=== PATIENT | male | born 1970 | race Caucasian/White ===

== ENCOUNTER 2016-09-11 19:15 | Emergency (ER) | payer MEDICAID ==
[~2016-09-11] VITALS: Ht 185.4 cm; Wt 88.0 kg
[~2016-09-11 19:15] MED LIST: ALB2.5IS NEB; IPRIH IN; MONT10TA34 OR
[2016-09-11 19:23] VITALS: BP 119/93
[2016-09-11] MEDS ORDERED: SODIUM CHLORIDE 0.9% 1,000 ML IV ONE (22:15)
[2016-09-11] MEDS ORDERED: cefTRIAXone 1GM/50ML D5W 50 ML IV ONE (22:15)
[2016-09-11 22:44] LABS: Basophils # (auto) 0.1 uL; Basophils % (auto) 0.9 % (0.0-2.0); CONDITION Y; Eosinophils # (auto) 0.1 uL; Eosinophils % (auto) 1.2 % (0.0-7.0); Hemoglobin 17.5 g/dL (13.5-17.5); Lymphocytes # (auto) 1.3 uL; Lymphocytes % (auto) 11.2 % (10.0-50.0); Mean Corpuscular Hemoglobin 30.4 pg (28.0-32.0); Mean Corpuscular Hgb Conc. 33.6 g/dL (32.0-36.0); Mean Corpuscular Volume 90.5 fL (80.0-100.0); Mean Platelet Volume 9.3 fL (7.4-10.4); Monocytes % (auto) 8.5 % (0.0-12.0); Neutrophils # (auto) 8.8 uL; Neutrophils % (auto) 78.2 % (37.0-80.0); Platelet Count (auto) 320 10^3/uL (140-450); White Blood Cell 11.2 10^3/uL (4.4-10.8)
[2016-09-11 22:59] LABS: Albumin 3.2 g/dL (3.4-5.0); BUN/Creatinine Ratio 11.7; Bilirubin, Total 0.3 mg/dL (0.2-1.0); Calcium 8.8 mg/dL (8.5-10.1); Potassium 4.3 mmol/L (3.5-5.1); Total Protein 7.6 g/dL (6.4-8.2)
== END 2016-09-11 23:56 | disposition home or self-care (01) ==
LOC: ER 19:16
DX: L02.511 Cutaneous abscess of right hand (principal); I10 Essential (primary) hypertension; J45.909 Unspecified asthma, uncomplicated
CPT/HCPCS: 36415; 73120; 80053; 83605; 85025; 96361; 96365; 99285; J0696; J7030

== ENCOUNTER 2016-10-04 11:14 | Emergency (ER) | payer MEDICAID ==
[~2016-10-04] VITALS: Ht 185.4 cm; Wt 90.7 kg
[2016-10-04 11:30] VITALS: BP 122/93
[2016-10-04] MEDS ORDERED: cefTRIAXone SOD 1,000 MG VL IM ONE (12:30)
== END 2016-10-04 12:46 | disposition home or self-care (01) ==
LOC: ER 11:14
DX: L03.011 Cellulitis of right finger (principal); I10 Essential (primary) hypertension; J45.909 Unspecified asthma, uncomplicated; F17.210 Nicotine dependence, cigarettes, uncomplicated
CPT/HCPCS: 96372; 99283; J0696

== ENCOUNTER 2018-05-19 11:02 | Emergency (ER) | payer SELFPAY ==
[~2018-05-19] VITALS: Ht 185.4 cm; Wt 87.1 kg
[2018-05-19 11:22] VITALS: BP 141/84
== END 2018-05-19 11:56 | disposition left against medical advice (07) ==
LOC: ER 11:08
DX: R06.02 Shortness of breath (principal); Z53.21 Procedure and treatment not carried out due to patient leaving prior to being seen by health care provider

== ENCOUNTER 2021-06-06 14:06 | Inpatient (IN) | payer MEDICAID ==
[~2021-06-06] VITALS: Ht 185.4 cm; Wt 107.3 kg
[~2021-06-06 14:06] MED LIST changes: +MONT-8 OR; -MONT10TA34 OR
[2021-06-06] MEDS ORDERED: methylPREDNISolone SOD SUCC 125 MG/2 ML VL IV ONE (15:15)
[2021-06-06] MEDS ORDERED: ALBUTEROL SULF 2.5 MG/0.5ML(0.5%) NEB SOLN NEB ONE ×2 (15:15→18:15)
[2021-06-06] MEDS ORDERED: IPRATROPIUM BROM 0.5 MG/2.5ML INH SOL NEB ONE ×3 (15:15→20:45)
[2021-06-06] MEDS ORDERED: FUROSEMIDE 20 MG/2 ML VIAL IV ONE (15:30)
[2021-06-06 15:34] LABS: Basophils # (auto) 0.1 10 ^3/uL (0-0.2); Basophils % (auto) 0.7 % (0.0-2.0); Eosinophils # (auto) 0.5 10 ^3/uL (0-0.8); Eosinophils % (auto) 6.3 % (0.0-7.0); Hematocrit 44.6 % (41.0-53.0); Hemoglobin 15.5 g/dL (13.5-17.5); Lymphocytes # (auto) 1.3 10 ^3/uL (0.4-5.4); Lymphocytes % (auto) 16.1 % (10.0-50.0); Mean Corpuscular Hemoglobin 30.9 pg (28.0-32.0); Mean Corpuscular Hgb Conc. 34.8 g/dL (32.0-36.0); Mean Corpuscular Volume 88.8 fL (80.0-100.0); Monocytes # (auto) 0.5 10 ^3/uL (0-1.3); Monocytes % (auto) 6.7 % (0.0-12.0); Neutrophils # (auto) 5.6 10 ^3/uL (1.6-8.6); Neutrophils % (auto) 70.2 % (37.0-80.0); Nucleated Red Blood Cells % 0.1 %; Red Blood Cells 5.03 10^6/uL (4.5-5.90); Red Cell Distribution Width 13.9 % (11.8-14.3); White Blood Cell 7.9 10^3/uL (4.4-10.8)
[2021-06-06 15:44] LABS: Albumin 3.4 g/dL (3.4-5.0); Anion Gap 4 (5-15); Blood Urea Nitrogen 12 mg/dL (7-18); Calcium 8.6 mg/dL (8.5-10.1); Carbon Dioxide 30 mmol/L (21-32); Chloride 106 mmol/L (98-107); Glucose 153 mg/dL (74-106); Potassium 3.7 mmol/L (3.5-5.1); Sodium 140 mmol/L (136-145)
[2021-06-06 15:51] LABS: Alanine Aminotransferase 13 U/L (16-61); Alkaline Phosphatase 89 U/L (45-117); Aspartate Aminotransferase 19 U/L (15-37); BUN/Creatinine Ratio 11.4; Bilirubin, Total 0.4 mg/dL (0.2-1.0); GFR African American 97 mL/min; GFR Non-African American 80 mL/min; Total Protein 7.1 g/dL (6.4-8.2)
[2021-06-06] MEDS ORDERED: ALBUTEROL SULF 2.5 MG/0.5ML(0.5%) NEB SOLN HHN ONE (20:45)
[2021-06-06] MEDS ORDERED: ACETAMINOPHEN 325 MG TAB PO PRN (21:45)
[2021-06-06] MEDS ORDERED: MORPHINE SULFATE INJECTION 2 MG/ML SYRG IV PRN (21:45)
[2021-06-06] MEDS ORDERED: NITROGLYCERIN 0.4 MG SL TAB SL PRN (21:45)
[2021-06-06] MEDS ORDERED: TEMAZEPAM 15 MG CAP PO PRN (21:45)
[2021-06-06] MEDS ORDERED: ONDANSETRON HCL 4 MG/2 ML VIAL IV PRN (21:45)
[2021-06-06 21:59] VITALS: BP 118/69
[2021-06-06] MEDS: MONTELUKAST SODIUM 10 MG TAB PO SCH (22:55)
[2021-06-06] MEDS: methylPREDNISolone SOD SUCC 125 MG/2 ML VL IV SCH (22:55)
[2021-06-07] VITALS: BP 128/73
[2021-06-07 05:00] VITALS: BP 111/69
[2021-06-07 06:10] LABS: Basophils # (auto) 0 10 ^3/uL (0-0.2); Basophils % (auto) 0.1 % (0.0-2.0); Eosinophils # (auto) 0 10 ^3/uL (0-0.8); Hematocrit 43.9 % (41.0-53.0); Hemoglobin 15.6 g/dL (13.5-17.5); Lymphocytes # (auto) 0.5 10 ^3/uL (0.4-5.4); Lymphocytes % (auto) 5.4 % (10.0-50.0); Mean Corpuscular Hgb Conc. 35.5 g/dL (32.0-36.0); Mean Corpuscular Volume 87.3 fL (80.0-100.0); Monocytes # (auto) 0.1 10 ^3/uL (0-1.3); Monocytes % (auto) 0.9 % (0.0-12.0); Neutrophils # (auto) 9.2 10 ^3/uL (1.6-8.6); Neutrophils % (auto) 93.6 % (37.0-80.0); Nucleated Red Blood Cells % 0.1 %; Red Blood Cells 5.03 10^6/uL (4.5-5.90); Red Cell Distribution Width 13.8 % (11.8-14.3); White Blood Cell 9.8 10^3/uL (4.4-10.8)
[2021-06-07 06:15] LABS: Calcium 8.8 mg/dL (8.5-10.1); Potassium 4.1 mmol/L (3.5-5.1)
[2021-06-07 06:17] LABS: BUN/Creatinine Ratio 14.1
[2021-06-07 08:30] VITALS: BP 107/77
[2021-06-07] MEDS: IPRATROPIUM BROM 0.5 MG/2.5ML INH SOL NEB PRN ×2 (10:18→12:41)
[2021-06-07] MEDS: ALBUTEROL SULF 2.5 MG/0.5ML(0.5%) NEB SOLN NEB PRN ×2 (10:18→12:41)
[2021-06-07] MEDS: PANTOPRAZOLE 40 MG TAB PO SCH (10:34)
[2021-06-07] MEDS: methylPREDNISolone SOD SUCC 125 MG/2 ML VL IV SCH ×2 (10:34→21:22)
[2021-06-07 12:30] VITALS: BP 105/66
[2021-06-07 16:20] VITALS: BP 114/62
[2021-06-07] MEDS ORDERED: AZITHROMYCIN 250 MG TAB PO ONE (16:30)
[2021-06-07] MEDS ORDERED: guaiFENesin-DM 100/10mg/5ml SYR PO PRN (16:30)
[2021-06-07] MEDS: IPRATROPIUM BROM 0.5 MG/2.5ML INH SOL NEB SCH ×2 (18:04→21:27)
[2021-06-07] MEDS: ALBUTEROL SULF 2.5 MG/0.5ML(0.5%) NEB SOLN NEB SCH ×2 (18:04→21:27)
[2021-06-07] MEDS: BUDESONIDE (INHALATION) 0.5 MG/2 ML NEB NEB SCH (18:05)
[2021-06-07] MEDS: MONTELUKAST SODIUM 10 MG TAB PO SCH (21:22)
[2021-06-07 22:00] VITALS: BP 119/72
[2021-06-08] MEDS: ALBUTEROL SULF 2.5 MG/0.5ML(0.5%) NEB SOLN NEB SCH ×6 (01:29→22:09)
[2021-06-08] MEDS: IPRATROPIUM BROM 0.5 MG/2.5ML INH SOL NEB SCH ×6 (01:29→22:09)
[2021-06-08 05:00] VITALS: BP 116/61
[2021-06-08 05:46] LABS: Cholesterol 184 mg/dL (< 200); HDL Cholesterol 69 mg/dL (40-59); LDL Cholesterol 96 mg/dL (< 100); Triglycerides 59 mg/dL (< 150)
[2021-06-08 06:18] LABS: Alcohol, Urine < 3.0 mg/dL (0-10); Amphetamine Screen, Urine NEGATIVE (NEGATIVE); Barbiturate Scree,Urine NEGATIVE (NEGATIVE); Benzodiazephine Screen, Urine NEGATIVE (NEGATIVE); Cannabinoid Screen, Urine NEGATIVE (NEGATIVE); Cocaine Screen, Urine NEGATIVE (NEGATIVE); Opiate Scree,Urine NEGATIVE (NEGATIVE); Phencyclidine Screen, Urine NEGATIVE (NEGATIVE)
[2021-06-08 09:00] VITALS: BP 100/50
[2021-06-08] MEDS ORDERED: AZITHROMYCIN 250 MG TAB PO SCH (10:00)
[2021-06-08] MEDS: BUDESONIDE (INHALATION) 0.5 MG/2 ML NEB NEB SCH ×2 (10:16→18:54)
[2021-06-08] MEDS: methylPREDNISolone SOD SUCC 125 MG/2 ML VL IV SCH ×2 (10:54→21:19)
[2021-06-08] MEDS: PANTOPRAZOLE 40 MG TAB PO SCH (10:54)
[2021-06-08 13:00] VITALS: BP 107/60
[2021-06-08] MEDS ORDERED: CHOLECALCIFEROL (VITD3) 2,000 UNIT CAP/TAB PO ONE (14:00)
[2021-06-08] MEDS ORDERED: levoFLOXacin 250 MG TAB PO ONE (14:00)
[2021-06-08 17:00] VITALS: BP 113/70
[2021-06-08 22:00] VITALS: BP 113/63
[2021-06-09] MEDS: ALBUTEROL SULF 2.5 MG/0.5ML(0.5%) NEB SOLN NEB SCH ×4 (02:12→14:42)
[2021-06-09] MEDS: IPRATROPIUM BROM 0.5 MG/2.5ML INH SOL NEB SCH ×4 (02:12→14:42)
[2021-06-09 05:00] VITALS: BP 105/68
[2021-06-09] MEDS: BUDESONIDE (INHALATION) 0.5 MG/2 ML NEB NEB SCH (06:34)
[2021-06-09 09:00] VITALS: BP 110/73
[2021-06-09] MEDS ORDERED: levoFLOXacin 250 MG TAB PO SCH (10:00)
[2021-06-09] MEDS ORDERED: CHOLECALCIFEROL (VITD3) 2,000 UNIT CAP/TAB PO SCH (10:00)
[2021-06-09] MEDS: methylPREDNISolone SOD SUCC 125 MG/2 ML VL IV SCH (10:01)
[2021-06-09] MEDS: PANTOPRAZOLE 40 MG TAB PO SCH (10:01)
[2021-06-09] MEDS ORDERED: ALBUAER3 IN (12:45)
[2021-06-09] MEDS ORDERED: CHOL20007 PO (12:45)
[2021-06-09] MEDS ORDERED: PRED20TA2 PO (12:45)
[2021-06-09] MEDS ORDERED: LEVO750T8 PO (12:45)
[2021-06-09 13:00] VITALS: BP 115/80
[2021-06-09 15:23] VITALS: BP 115/80
== END 2021-06-09 16:06 | disposition home or self-care (01) | DRG 133 ==
LOC: ER 14:06 → TELE 21:41 → TELE-WESTW 23:34
PROVIDERS: ADMIT Nurse Practitioner; ATTEND Internal Medicine
DX: J96.20 Acute and chronic respiratory failure, unspecified whether with hypoxia or hypercapnia (principal); J18.9 Pneumonia, unspecified organism; J44.0 Chronic obstructive pulmonary disease with (acute) lower respiratory infection; J45.901 Unspecified asthma with (acute) exacerbation; J44.1 Chronic obstructive pulmonary disease with (acute) exacerbation; J90 Pleural effusion, not elsewhere classified; J20.9 Acute bronchitis, unspecified; E55.9 Vitamin D deficiency, unspecified; F15.90 Other stimulant use, unspecified, uncomplicated; I10 Essential (primary) hypertension; Z20.822 Contact with and (suspected) exposure to COVID-19; Z81.8 Family history of other mental and behavioral disorders; Z72.0 Tobacco use
CPT/HCPCS: 36415; 71046; 71250; 80048; 80053; 80061; 80307; 82306; 83036; 83880; 84443; 84484; 85025; 85379; 93005; 93306; 94640; 96374; 96375; G0378

== ENCOUNTER 2023-08-21 04:13 | Emergency (ER) | payer MEDICAID ==
[~2023-08-21] VITALS: Ht 185.4 cm; Wt 86.9 kg
[~2023-08-21 04:13] MED LIST changes: +ALBUAER3 IN; +BACDST PO; +DIP005TP EX; +LEVO750T8 PO; +PRED20TA2 PO
[2023-08-21 06:46] VITALS: BP 120/86; PULSE 104; TEMP 98.6
[2023-08-21] MEDS: ALBUTEROL SULF 2.5 MG/0.5ML(0.5%) NEB SOLN NEB ONE (07:42)
[2023-08-21 07:43] VITALS: RESP 18; O2SAT 98
[2023-08-21] MEDS: IPRATROPIUM BROM 0.5 MG/2.5ML INH SOL NEB ONE (07:43)
[2023-08-21 08:26] LABS: Basophils # (auto) 0.2 10 ^3/uL (0-0.2); Basophils % (auto) 2.9 % (0.0-2.0); Eosinophils # (auto) 0.5 10 ^3/uL (0-0.8); Eosinophils % (auto) 7.4 % (0.0-7.0); Hematocrit 46.8 % (41.0-53.0); Hemoglobin 16.2 g/dL (13.5-17.5); Lymphocytes # (auto) 1.3 10 ^3/uL (0.4-5.4); Lymphocytes % (auto) 18.2 % (10.0-50.0); Mean Corpuscular Hemoglobin 30.3 pg (28.0-32.0); Mean Corpuscular Hgb Conc. 34.6 g/dL (32.0-36.0); Mean Corpuscular Volume 87.6 fL (80.0-100.0); Monocytes # (auto) 0.7 10 ^3/uL (0-1.3); Monocytes % (auto) 9.7 % (0.0-12.0); Neutrophils # (auto) 4.3 10 ^3/uL (1.6-8.6); Neutrophils % (auto) 61.8 % (37.0-80.0); Nucleated Red Blood Cells % 0.1 %; Red Blood Cells 5.34 10^6/uL (4.5-5.90); Red Cell Distribution Width 13.4 % (11.8-14.3); White Blood Cell 6.9 10^3/uL (4.4-10.8)
[2023-08-21] MEDS ORDERED: DIP005TP EX (08:31)
[2023-08-21] MEDS ORDERED: ALBUAER3 IN (08:31)
[2023-08-21] MEDS ORDERED: TRIA0.1O TOP (08:31)
[2023-08-21] MEDS ORDERED: METH4PAK PO (08:38)
== END 2023-08-21 08:39 | disposition home or self-care (01) ==
LOC: ER 04:13
DX: L30.1 Dyshidrosis [pompholyx] (principal); J45.901 Unspecified asthma with (acute) exacerbation; I10 Essential (primary) hypertension; F17.210 Nicotine dependence, cigarettes, uncomplicated; Z79.2 Long term (current) use of antibiotics; Z79.899 Other long term (current) drug therapy
CPT/HCPCS: 36415; 85025; 94640; 99283; J7644